=== PATIENT | female | born 1995 | race Hispanic/Latino ===

== ENCOUNTER 2022-03-10 22:20 | Emergency (ER) | payer OTHER ==
[~2022-03-10] VITALS: Ht 175.3 cm; Wt 142.9 kg
[2022-03-10 22:42] VITALS: BP 143/78
[2022-03-10] MEDS ORDERED: DOXY-469 PO (23:12)
[2022-03-10] MEDS ORDERED: NAPR500T6 PO (23:12)
[2022-03-11] MEDS: BACITRACIN 1 EACH PACKET TP ONE ×2 (00:06)
== END 2022-03-11 00:16 | disposition home or self-care (01) ==
LOC: EDH 22:20
DX: S61.452A Open bite of left hand, initial encounter (principal); M79.645 Pain in left finger(s); Z88.0 Allergy status to penicillin; Z79.1 Long term (current) use of non-steroidal anti-inflammatories (NSAID); W54.0XXA Bitten by dog, initial encounter; Y93.89 Activity, other specified; Y92.89 Other specified places as the place of occurrence of the external cause; Y99.8 Other external cause status
CPT/HCPCS: 73140

== ENCOUNTER 2022-05-05 11:31 | Emergency (ER) | payer OTHER ==
[~2022-05-05] VITALS: Ht 175.3 cm; Wt 130.2 kg
[~2022-05-05 11:31] MED LIST: DOXY-469 PO; NAPR500T6 PO
[2022-05-05 11:55] VITALS: BP 144/78
[2022-05-05 12:16] LABS: APPEARANCE,URINE TURBID (CLEAR); BILIRUBIN,URINE NEGATIVE (NEGATIVE); COLOR,URINE RED (YELLOW); GLUCOSE, URINE (UA) NEGATIVE (NEGATIVE); KETONES,URINE NEGATIVE (NEGATIVE); LEUKOCYTE ESTERASE ,URINE TRACE Leu/uL (NEGATIVE); NITRATE,URINE NEGATIVE (NEGATIVE); OCCULT BLOOD,URINE LARGE (NEGATIVE); PROTEIN,URINE 30 mg/dL (NEGATIVE); UROBILINOGEN,URINE 0.2 mg/dL (0.2-1.0)
[2022-05-05 12:29] LABS: HCG,QUALITATIVE URINE NEGATIVE (NEGATIVE)
[2022-05-05 12:51] LABS: BASOPHILS % (AUTO) 0.6 % (0.0-5.0); EOSINOPHILS % (AUTO) 2.1 % (0.0-8.0); HEMATOCRIT 36.4 % (36-48); LYMPHOCYTES % (AUTO) 37.3 % (21.0-51.0); MEAN CORPUSCULAR HEMOGLOBIN 29.1 pg (27.0-33.0); MEAN CORPUSCULAR VOLUME 88.3 fL (79-99); MONOCYTES % (AUTO) 4.4 % (3.0-13.0); NEUTROPHILS % (AUTO) 54.9 % (40.0-77.0); PLATELET COUNT (AUTO) 253 K/uL (130-400); RED BLOOD CELL COUNT(AUTO) 4.12 MIL/uL (4.00-5.50); WHITE BLOOD COUNT (AUTO) 8.6 K/uL (4.8-10.8)
[2022-05-05 12:56] LABS: BACTERIA,URINE Rare /HPF (None Seen); RBC,URINE TNTC /HPF (0-1); SQUAMOUS EPITHELIAL CELL,UR Rare /HPF (0-2)
[2022-05-05 12:59] LABS: CREATININE 0.7 mg/dL (0.5-1.5); POTASSIUM 4.1 mmol/L (3.5-5.1)
[2022-05-05] MEDS ORDERED: 0.9%NACL 1000ML 1,000 ML IV ONE (13:00)
[2022-05-05] MEDS ORDERED: KETOROLAC 15MG/ML VIAL (15MG/ML) IV ONE (13:00)
[2022-05-05 13:04] LABS: ALBUMIN 3.9 g/dL (3.5-5.0); TOTAL PROTEIN, SERUM 7.9 g/dL (6.0-8.3)
[2022-05-05] MEDS ORDERED: NAPR500T6 PO (14:03)
== END 2022-05-05 14:34 | disposition home or self-care (01) ==
LOC: EDH 11:31
DX: N93.8 Other specified abnormal uterine and vaginal bleeding (principal); R51.9 Headache, unspecified; D64.9 Anemia, unspecified; Z79.2 Long term (current) use of antibiotics; Z79.899 Other long term (current) drug therapy; Z88.0 Allergy status to penicillin
CPT/HCPCS: 99283; 96374; 96361; 80053; 85025; 81001; 81025; 36415; J7030; J1885

== ENCOUNTER 2022-06-30 20:50 | Emergency (ER) | payer BC, OTHER ==
[~2022-06-30] VITALS: Ht 175.3 cm; Wt 152.4 kg
[2022-06-30 20:51] VITALS: BP 165/109
[2022-06-30 21:31] LABS: BASOPHILS % (AUTO) 0.3 % (0.0-5.0); EOSINOPHILS % (AUTO) 2.1 % (0.0-8.0); HEMATOCRIT 34.6 % (36-48); LYMPHOCYTES % (AUTO) 26.6 % (21.0-51.0); MEAN CORPUSCULAR HEMOGLOBIN 24.4 pg (27.0-33.0); MEAN CORPUSCULAR HGB CONC 30.3 g/dL (32.0-36.0); MEAN CORPUSCULAR VOLUME 80.5 fL (79-99); MONOCYTES % (AUTO) 8.1 % (3.0-13.0); NEUTROPHILS % (AUTO) 62.5 % (40.0-77.0); PLATELET COUNT (AUTO) 285 K/uL (130-400); RED CELL DISTRIBUTION WIDTH 15.9 % (11.0-15.5); WHITE BLOOD COUNT (AUTO) 7.5 K/uL (4.8-10.8)
[2022-06-30 21:43] LABS: CREATININE 0.7 mg/dL (0.5-1.5); POTASSIUM 3.7 mmol/L (3.5-5.1)
[2022-06-30 21:45] LABS: ALBUMIN 4.1 g/dL (3.5-5.0); TOTAL PROTEIN, SERUM 7.9 g/dL (6.0-8.3)
[2022-06-30] MEDS ORDERED: DICYCLOMINE 20MG (10MG/ML) AMP IM STA (22:40)
[2022-06-30] MEDS ORDERED: 0.9%NACL 1000ML 1,000 ML IV ONE (23:00)
[2022-06-30] MEDS ORDERED: ACETAMINOPHEN 500 MG TABLET PO ONE (23:00)
[2022-06-30] MEDS ORDERED: FAMOTIDINE 20MG VIAL IV ONE (23:00)
[2022-06-30] MEDS ORDERED: ONDANSETRON 4MG INJ IVP ONE (23:00)
[2022-06-30] MEDS ORDERED: KETOROLAC 15MG/ML VIAL (15MG/ML) IV ONE (23:00)
[2022-07-01] MEDS ORDERED: ONDA4TAB10 PO (00:18)
[2022-07-01] MEDS ORDERED: FAMO-136 PO (00:18)
[2022-07-01] MEDS ORDERED: BACI1TAB3 PO (00:18)
[2022-07-01] MEDS ORDERED: ACET-66 PO (00:18)
== END 2022-07-01 00:56 | disposition home or self-care (01) ==
LOC: EDH 20:50
DX: A05.9 Bacterial foodborne intoxication, unspecified (principal); R10.13 Epigastric pain; R11.2 Nausea with vomiting, unspecified; Z88.0 Allergy status to penicillin; Z79.1 Long term (current) use of non-steroidal anti-inflammatories (NSAID); Z90.89 Acquired absence of other organs
CPT/HCPCS: 99284; 96374; 96375; 96361; 80053; 83690; 85025; 36415; 96372; J3490; J7030; J2405; J0500; J1885

== ENCOUNTER 2023-02-03 03:11 | Emergency (ER) | payer BC ==
[~2023-02-03] VITALS: Ht 175.3 cm; Wt 153.3 kg
[~2023-02-03 03:11] MED LIST changes: +ACET-66 PO; +BACI1TAB3 PO; +FAMO-136 PO; +ONDA4TAB10 PO
[2023-02-03] MEDS ORDERED: 0.9%NACL 1000ML 1,000 ML IV ONE (03:30)
[2023-02-03] MEDS ORDERED: ONDANSETRON 4MG INJ IVP ONE ×2 (03:30→04:00)
[2023-02-03] MEDS ORDERED: LACTATED RINGERS 1000ML IV ONE (03:30)
[2023-02-03] MEDS ORDERED: METRONIDAZOLE 500MG/100ML BAG 100 ML ONE (03:33)
[2023-02-03 03:34] LABS: APPEARANCE,URINE CLOUDY (CLEAR); BILIRUBIN,URINE NEGATIVE (NEGATIVE); COLOR,URINE LIGHT-YELLOW (YELLOW); GLUCOSE, URINE (UA) 70 mg/dL (NEGATIVE); KETONES,URINE NEGATIVE (NEGATIVE); LEUKOCYTE ESTERASE ,URINE NEGATIVE Leu/uL (NEGATIVE); NITRATE,URINE NEGATIVE (NEGATIVE); OCCULT BLOOD,URINE NEGATIVE (NEGATIVE); PROTEIN,URINE 50 mg/dL (NEGATIVE); UROBILINOGEN,URINE 0.2 mg/dL (0.2-1.0)
[2023-02-03] MEDS ORDERED: LACTATED RINGERS 1000ML 3,000 ML IV ONE (03:34)
[2023-02-03] MEDS ORDERED: ONDANSETRON 4MG INJ ONE (03:34)
[2023-02-03 03:36] LABS: ADD UA MICROSCOPIC YES
[2023-02-03 03:38] LABS: BASOPHILS # (AUTO) 0.03 K/uL (0.00-0.20); BASOPHILS % (AUTO) 0.4 % (0.0-5.0); EOSINOPHILS % (AUTO) 1.2 % (0.0-8.0); IMMATURE GRANULOCYTE ABSOLUTE 0.05 K/uL (0-1); LYMPHOCYTES # (AUTO) 2.7 K/uL (1.0-4.8); LYMPHOCYTES % (AUTO) 32.4 % (21.0-51.0); MEAN CORPUSCULAR HEMOGLOBIN 24.3 pg (27.0-33.0); MEAN CORPUSCULAR HGB CONC 31.4 g/dL (32.0-36.0); MEAN CORPUSCULAR VOLUME 77.6 fL (79-99); MONOCYTES # (AUTO) 0.5 K/uL (0.1-1.0); MONOCYTES % (AUTO) 6.3 % (3.0-13.0); NEUTROPHILS % (AUTO) 59.1 % (40.0-77.0); PLATELET COUNT (AUTO) 282 K/uL (130-400); RED BLOOD CELL COUNT(AUTO) 4.77 MIL/uL (4.00-5.50); RED CELL DISTRIBUTION WIDTH 17.2 % (11.0-15.5); WHITE BLOOD COUNT (AUTO) 8.5 K/uL (4.8-10.8)
[2023-02-03 03:40] LABS: MUCUS,URINE FEW LPF (None Seen); SQUAMOUS EPITHELIAL CELL,UR MOD /HPF (0-2)
[2023-02-03 03:48] LABS: CREATININE 0.6 mg/dL (0.5-1.5); POTASSIUM 4.9 mmol/L (3.5-5.1)
[2023-02-03 03:52] LABS: ALBUMIN 3.7 g/dL (3.5-5.0); BILIRUBIN,TOTAL 0.4 mg/dL (0.2-1.0); TOTAL PROTEIN, SERUM 8.2 g/dL (6.0-8.3)
[2023-02-03] MEDS ORDERED: CIPR-278 PO (05:07)
[2023-02-03] MEDS ORDERED: ONDA4TAB10 PO (05:07)
[2023-02-03] MEDS ORDERED: METR-172 PO (05:07)
[2023-02-03 05:42] VITALS: BP 126/85; PULSE 86; RESP 18; O2SAT 98
[2023-02-03] MEDS ORDERED: METRONIDAZOLE 500MG/100ML BAG 100 ML IVPB SCH (06:00)
[2023-02-05 16:11] LABS: C DIFFICILE TOXIN A/B Not Detected (Not Detected); ENTEROAGGREGATIVE ECOLI Not Detected (Not Detected); GIARDIA LAMBLIA Not Detected (Not Detected); PLESIOMONAS SHIGELOIDES Not Detected (Not Detected); SAPOVIRUS Not Detected (Not Detected); SHIGELLA/ENTEROINVASIVE E COLI Not Detected (Not Detected); VIBRIO Not Detected (Not Detected); VIBRIO CHOLERAE Not Detected (Not Detected)
== END 2023-02-03 05:48 | disposition home or self-care (01) ==
LOC: EDH 03:11
DX: A04.9 Bacterial intestinal infection, unspecified (principal); Z88.0 Allergy status to penicillin
CPT/HCPCS: 99284; 96365; 96375; 80053; 83690; 85025; 81001; 81025; 36415; 87507; J7120; J2405; J3490; 96374